=== PATIENT | male | born 1990 | race Two or more races ===

== ENCOUNTER 2019-01-18 11:08 | Inpatient (IN) | payer MEDICAID ==
[~2019-01-18] VITALS: Ht 175.3 cm; Wt 68.5 kg
[2019-01-18] MEDS ORDERED: NKM (11:18)
[2019-01-18 11:25] VITALS: BP 149/116
[2019-01-18 11:56] LABS: APPEARANCE,URINE CLEAR; BASOPHILS % (AUTO) 1.6 % (0.0-2.0); BILIRUBIN, URINE NEGATIVE (NEGATIVE); COLOR,URINE PALE YELLOW; EOSINOPHILS % (AUTO) 9.6 % (0.0-3.0); GLUCOSE, URINE (UA) NEGATIVE (NEGATIVE); HEMATOCRIT 32.6 % (42.0-52.0); HEMOGLOBIN 11.6 G/DL (14.2-18.0); KETONES,URINE NEGATIVE (NEGATIVE); LEUKOCYTE ESTERASE ,URINE 1+ (NEGATIVE); LYMPHOCYTES % (AUTO) 14.5 % (20.0-45.0); MEAN CORPUSCULAR VOLUME 80 FL (80-99); MONOCYTES % (AUTO) 11.2 % (1.0-10.0); NITRITE,URINE NEGATIVE (NEGATIVE); PH,URINE 7 (4.5-8.0); PLATELET COUNT 200 K/UL (150-450); PROTEIN,URINE 2+ (NEGATIVE); RED CELL DISTRIBUTION WIDTH 11.3 % (11.6-14.8); UROBILINOGEN,URINE NORMAL MG/DL (0.0-1.0); WHITE BLOOD COUNT 6.3 K/UL (4.8-10.8)
[2019-01-18 12:15] LABS: ALANINE AMINOTRANSFERASE 24 U/L (12-78); ALBUMIN 3.8 G/DL (3.4-5.0); ALKALINE PHOSPHATASE 77 U/L (46-116); ANION GAP 5 mmol/L (5-15); ASPARTATE AMINO TRANSFERASE 17 U/L (15-37); BILIRUBIN,TOTAL 1.2 MG/DL (0.2-1.0); BLOOD UREA NITROGEN 23 mg/dL (7-18); CARBON DIOXIDE 34 MMOL/L (21-32); CHLORIDE 102 MMOL/L (98-107); CREATININE 2.5 MG/DL (0.55-1.30); POTASSIUM 3.3 MMOL/L (3.5-5.1); SODIUM 141 MMOL/L (136-145)
--- NOTE | 2019-01-18 12:35 | Emergency Room Report ---
History of Present Illness General Chief Complaint: Abdominal Pain Source: Patient Present Illness HPI Disclaimer: Please note that this report is being documented using DRAGON technology. This can lead to erroneous entry secondary to incorrect interpretation by the dictating instrument. HPI: 28-year-old male presents for evaluation of vomiting. Symptoms have been present intermittently for approximately 1 month. 2 weeks ago the patient stopped using methamphetamines and alcohol though previously was using both heavily. He does not complain of abdominal pain but states that he has been having postprandial emesis after almost every wheel for the past 2 weeks. He is sometimes able to tolerate liquids but solids have been difficult particularly the past few days. He denies any history of pancreatitis, cholecystitis, appendicitis or intra-abdominal surgeries. Denies recent fevers , chills, chest pain, shortness of breath. Denies dysuria, hematuria diarrhea or constipation. There is been no blood in the emesis but he does describe it as bilious. 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 EOMI. poor dentition. Dry mucous membranes Cardiovascular: RRR. S1 and S2 normal. No murmur appreciated Resp: Normal work of breathing. No cough, wheezing or crackles appreciated Abdomen: Abdomen is soft, nondistended. Nontender, no masses Skin: Intact. No abrasions, laceration or rash over the exposed skin MSK: Normal tone and bulk. Moving all extremities. No obvious deformity. Neuro: Awake and alert. Mentating appropriately. Medical Decision Making Diagnostic Impression: Primary Impression: PURNIMA (acute kidney injury) Additional Impressions: Hypercalcemia Vomiting ER Course 28-year-old male presents for evaluation of several weeks postprandial emesis and dehydration. Differential includes was not limited to gastritis, viral syndrome, pancreatitis, cholecystitis, hepatitis, cyclic vomiting, withdrawal symptoms. This most likely represent a gastritis either from his prior heavy alcohol use or a viral syndrome. His abdomen is nontender and overall benign. Will check screening labs, provide antiemetics and IV fluids. Originally presented tachycardic but improved Laboratory Tests Test 01/18/19 11:30 White Blood Count 6.3 K/UL (4.8-10.8) Red Blood Count 4.10 M/UL (4.70-6.10) L Hemoglobin 11.6 G/DL (14.2-18.0) L Hematocrit 32.6 % (42.0-52.0) L Mean Corpuscular Volume 80 FL (80-99) Mean Corpuscular Hemoglobin 28.4 PG (27.0-31.0) Mean Corpuscular Hemoglobin Concent 35.7 G/DL (32.0-36.0) Red Cell Distribution Width 11.3 % (11.6-14.8) L Platelet Count 200 K/UL (150-450) Mean Platelet Volume 6.5 FL (6.5-10.1) Neutrophils (%) (Auto) 63.0 % (45.0-75.0) Lymphocytes (%) (Auto) 14.5 % (20.0-45.0) L Monocytes (%) (Auto) 11.2 % (1.0-10.0) H Eosinophils (%) (Auto) 9.6 % (0.0-3.0) H Basophils (%) (Auto) 1.6 % (0.0-2.0) Urine Color Pale yellow Urine Appearance Clear Urine pH 7 (4.5-8.0) Urine Specific [place] 1.010 (1.005-1.035) Urine Protein 2+ (NEGATIVE) H Urine Glucose (UA) Negative (NEGATIVE) Urine Ketones Negative (NEGATIVE) Urine Blood Negative (NEGATIVE) Urine Nitrite Negative (NEGATIVE) Urine Bilirubin Negative (NEGATIVE) Urine Urobilinogen Normal MG/DL (0.0-1.0) Urine Leukocyte Esterase 1+ (NEGATIVE) H Urine RBC 0-2 /HPF (0 - 0) H Urine WBC 0-2 /HPF (0 - 0) Urine Squamous Epithelial Cells Occasional /LPF Urine Bacteria Few /HPF (NONE) Sodium Level 141 MMOL/L (136-145) Potassium Level 3.3 MMOL/L (3.5-5.1) L Chloride Level 102 MMOL/L (98-107) Carbon Dioxide Level 34 MMOL/L (21-32) H Anion Gap 5 mmol/L (5-15) Blood Urea Nitrogen 23 mg/dL (7-18) H Creatinine 2.5 MG/DL (0.55-1.30) H Estimate Glomerular Filtration Rate 30.7 mL/min (>60) Glucose Level 135 MG/DL (74-106) H Calcium Level 13.3 MG/DL (8.5-10.1) *H Calcium (Send out) Pending Phosphorus Level Pending Magnesium Level Pending Total Bilirubin 1.2 MG/DL (0.2-1.0) H Direct Bilirubin 0.2 MG/DL (0.0-0.3) Aspartate Amino Transferase (AST) 17 U/L (15-37) Alanine Aminotransferase (ALT) 24 U/L (12-78) Alkaline Phosphatase 77 U/L (46-116) Total Protein 7.7 G/DL (6.4-8.2) Albumin 3.8 G/DL (3.4-5.0) Globulin 3.9 g/dL Albumin/Globulin Ratio 1.0 (1.0-2.7) Lipase 89 U/L (73-393) Parathyroid Hormone (Intact) Pending EKG Diagnostic Results EKG Time: 12:46 Rate: normal Rhythm: NSR ST Segments: no acute changes Other Impression Sinus rhythm, normal axis, normal intervals, no ST segment changes. Rhythm Strip Diag. Results Rhythm Strip Time: 12:46 EP Interpretation: yes Rate: 80s Rhythm: NSR, no PVC's, no ectopy Reevaluation Time: 12:56 Last Vital Signs Date Time Temp Pulse Resp B/P (MAP) Pulse Ox O2 Delivery O2 Flow Rate FiO2 01/18/19 11:25 98.7 101 18 149/116 99 Room Air Reevaluation Impression No significant white count noted however the patient did have a critically high calcium level at 13.6 and evidence of an acute kidney injury with a creatinine of 2.5 and an elevated BUN. The patient is receiving IV fluids and we will also add on magnesium, phosphorus, repeat calcium level and a PTH level. He will require admission for IV hydration and hypercalcemia Disposition: ADMITTED INPATIENT Condition: Serious Referrals: NOT CHOSEN IPA/,REFERRING (PCP) Jeramy Colvin MD Jan 18, 2019 12:35
[2019-01-18 12:38] LABS: CALCIUM 13.3 MG/DL (8.5-10.1)
[2019-01-18 12:39] LABS: BILIRUBIN,DIRECT 0.2 MG/DL (0.0-0.3)
[2019-01-18 12:47] VITALS: BP 148/107
[2019-01-18 14:00] VITALS: BP 147/109
[2019-01-18 16:00] VITALS: BP 151/104
--- NOTE | 2019-01-18 17:43 | Diagnostic Imaging Report ---
Indication: Acute renal failure Technique: Grayscale and duplex images of the kidneys, retroperitoneum, and bladder were obtained. Comparison: none Findings: Right kidney measures 12.2 cm in length. Left kidney measures 12.3 cm in length. Both kidneys demonstrate normal echogenicity. There is minimal hydronephrosis bilaterally.. No focal abnormality. Normal inferior vena cava. Bladder is slightly distended, calculated volume 323 mL. Incidentally noted-the spleen is enlarged, demonstrates innumerable hypoechoic nodules throughout the parenchyma. It measures 15.7 cm long axis dimension Impression: Minimal bilateral hydronephrosis, etiology/significance uncertain Enlarged spleen. Innumerable hypoechoic nodules seen throughout the spleen. These may represent foci of neoplasm or infection. Correlate with clinical history and findings, consider contrast CT for better characterization if clinically indicated.
--- NOTE | 2019-01-18 19:00 | Consultation ---
DATE OF CONSULTATION: 01/18/2019 CONSULTING PHYSICIAN: Ralph Chavez M.D. REFERRING PHYSICIAN: Angel Sandoval M.D. REASON FOR CONSULTATION: 1. Acute kidney injury. 2. Hypercalcemia. HISTORY OF PRESENT ILLNESS: The patient is a 28-year-old gentleman, who is admitted for further evaluation and care of nausea and vomiting, not feeling well with some abdominal pain. The patient states approximately 10 months ago, he was seen at a hospital in [facility] for a left lower payne infection and placed on antibiotics. He had been doing methamphetamines and alcohol and recently stopped over the past 2 months. He states that he not been feeling well over these past 2 months with some abdominal pain and nausea with occasional episodes of emesis. When it was noted upon laboratory evaluation that he had a creatinine of 2.5 and calcium of 13.1, the patient states he has not been told of any renal dysfunction in the past. He also says he has stopped all drugs and alcohol over the past 2 months. PAST MEDICAL HISTORY: 1. Substance abuse, currently in remission. 2. Left lower payne infection. ALLERGIES: No known drug allergies. SOCIAL HISTORY: Former meth and alcohol abuser. FAMILY HISTORY: Positive for hypertension. REVIEW OF SYSTEMS: NEUROLOGIC: The patient denies headache, change in vision, syncope, or presyncopal episodes. CARDIOVASCULAR: No current chest pain, palpitations, or angina. PULMONARY: No difficulty breathing, productive cough, or sputum. GASTROINTESTINAL/GENITOURINARY: The patient is having some nausea and vomiting. No diarrhea. ENDOCRINOLOGY: No night sweats, fevers, or chills. MUSCULOSKELETAL: The patient is feeling a little weak, tired, and fatigued. LABORATORY DATA: Labs dated January 18, 2019, sodium 141, potassium 3.3, calcium 13.1, creatinine 2.5, and BUN 23. Hemoglobin 11.6, white cell count 6.3, and platelet count 200,000. PHYSICAL EXAMINATION: VITAL SIGNS: Blood pressure 147/109, respiratory rate 18, pulse is 87, temperature 98, and 98% on room air. GENERAL: The patient is awake, alert, not in distress. HEENT: Extraocular muscles intact. No lymphadenopathy noted. CARDIOVASCULAR: S1, S2. No rubs or gallops. PULMONARY: Clear to auscultation bilaterally. No rales, rhonchi or wheezes. ABDOMINAL: Nondistended and nontender. EXTREMITY: No edema noted with left payne previous scarring noted. ASSESSMENT AND PLAN: 1. Acute kidney injury. At this time, most likely secondary to component of severe hypercalcemia. Chronicity is unclear. We will aggressively hydrate the patient and treat his calcium while checking renal ultrasound. 2. Hypercalcemia. Etiology unclear at this time. I have ordered SPEP, UPEP, PTH, and vitamin D levels and we will aggressively hydrate the patient. The patient will also be placed on calcitonin. We will follow calcium level throughout his hospitalization. 3. Dehydration. The patient is severely hypercalcemic. Continue aggressive IV hydration with normal saline 200 mL/hour. Ralph Chavez MD DR: PALMA JOB#: [id number] CC:
[2019-01-19 06:32] LABS: BASOPHILS % (AUTO) 1.9 % (0.0-2.0); HEMATOCRIT 29.4 % (42.0-52.0); HEMOGLOBIN 10.5 G/DL (14.2-18.0); LYMPHOCYTES % (AUTO) 15.4 % (20.0-45.0); MEAN CORPUSCULAR VOLUME 80 FL (80-99); MONOCYTES % (AUTO) 13.4 % (1.0-10.0); NEUTROPHILS % (AUTO) 58.3 % (45.0-75.0); PLATELET COUNT 168 K/UL (150-450); RED CELL DISTRIBUTION WIDTH 11.6 % (11.6-14.8)
[2019-01-19 07:05] LABS: ALANINE AMINOTRANSFERASE 21 U/L (12-78); ALBUMIN 3.2 G/DL (3.4-5.0); ALBUMIN/GLOBULIN RATIO 0.9 (1.0-2.7); ALKALINE PHOSPHATASE 63 U/L (46-116); ANION GAP 6 mmol/L (5-15); ASPARTATE AMINO TRANSFERASE 13 U/L (15-37); BILIRUBIN,TOTAL 1.3 MG/DL (0.2-1.0); BLOOD UREA NITROGEN 17 mg/dL (7-18); CALCIUM 10.8 MG/DL (8.5-10.1); CARBON DIOXIDE 27 MMOL/L (21-32); CHLORIDE 108 MMOL/L (98-107); CREATININE 2.3 MG/DL (0.55-1.30); POTASSIUM 3.4 MMOL/L (3.5-5.1); SODIUM 141 MMOL/L (136-145)
[2019-01-19 07:16] LABS: BILIRUBIN,DIRECT 0.2 MG/DL (0.0-0.3)
--- NOTE | 2019-01-19 07:42 | Nephrology Progress Note ---
Assessment/Plan Assessment/Plan: A/P 1) Hypercalcemia- improved with hydration and calcitonin - w/u pending - ? splenic malignancy 2) Innumerable hypoechoic nodules seen throughout the spleen. These may represent foci of neoplasm or infection. - will d/w PCP 3) PURNIMA- Cr down to 2.3 - min b/l hydro. - IVFs Subjective Date patient seen: Jan 19, 2019 Time patient seen: 07:40 ROS Limited/Unobtainable: No Allergies: Coded Allergies: No Known Allergies (Unverified , 01/18/19) Subjective Patient able to tolerate po now. Feeling better Objective Last 24 Hour Vital Signs Date Time Temp Pulse Resp B/P (MAP) Pulse Ox O2 Delivery O2 Flow Rate FiO2 01/19/19 05:22 97.0 01/18/19 21:00 Room Air 01/18/19 20:02 92 155/112 01/18/19 16:44 97.0 91 18 132/71 98 Room Air 01/18/19 16:00 97.0 91 18 151/104 (120) 98 01/18/19 15:13 Room Air 01/18/19 14:00 98.0 87 18 147/109 (122) 98 01/18/19 12:47 98.8 88 16 148/107 100 Room Air 01/18/19 11:25 98.7 101 18 149/116 99 Room Air 01/18/19 11:25 101 18 Room Air 01/18/19 11:18 98.8 101 18 153/104 (120) 99 Room Air Intake and Output 01/18/19 01/19/19 18:59 06:59 Intake Total 3800 ml 200 ml Balance 3800 ml 200 ml Intake IV Total 3800 ml 200 ml Laboratory Tests 01/18/19 11:30: White Blood Count 6.3, Red Blood Count 4.10L, Hemoglobin 11.6L, Hematocrit 32.6L , Mean Corpuscular Volume 80, Mean Corpuscular Hemoglobin 28.4, Mean Corpuscular Hemoglobin Concent 35.7, Red Cell Distribution Width 11.3L, Platelet Count 200, Mean Platelet Volume 6.5, Neutrophils (%) (Auto) 63.0, Lymphocytes (%) (Auto) 14.5L, Monocytes (%) (Auto) 11.2H, Eosinophils (%) (Auto ) 9.6H, Basophils (%) (Auto) 1.6, Urine Color Pale yellow, Urine Appearance Clear, Urine pH 7, Urine Specific [place] 1.010, Urine Protein 2+H, Urine Glucose (UA) Negative, Urine Ketones Negative, Urine Blood Negative, Urine Nitrite Negative, Urine Bilirubin Negative, Urine Urobilinogen Normal, Urine Leukocyte Esterase 1+H, Urine RBC 0-2H, Urine WBC 0-2, Urine Squamous Epithelial Cells Occasional, Urine Bacteria Few, Sodium Level 141, Potassium Level 3.3L, Chloride Level 102, Carbon Dioxide Level 34H, Anion Gap 5, Blood Urea Nitrogen 23H, Creatinine 2.5H, Estimat Glomerular Filtration Rate 30.7, Glucose Level 135H, Calcium Level 13.1*H, Calcium (Send out) [Pending], Phosphorus Level 3.3, Magnesium Level 1.7L, Total Bilirubin 1.2H, Direct Bilirubin 0.2, Aspartate Amino Transf (AST/SGOT) 17, Alanine Aminotransferase ( ALT/SGPT) 24, Alkaline Phosphatase 77, Total Protein 7.7, Albumin 3.8, Globulin 3.9, Albumin/Globulin Ratio 1.0, Lipase 89, Parathyroid Hormone (Intact) [ Pending] 01/18/19 15:30: Urine Total Protein [Pending], Urine Albumin (%) [Pending], Urine Alpha-1- Globulins (%) [Pending], Urine Fyfmz-4-Lrcbtahdd (%) [Pending], Urine Beta- Globulin (%) [Pending], Urine Gamma Globulin (%) [Pending], Ur Protein Electrophoresis M-Dio [Pending], Urine Protein Electrophoresis Intrp [Pending] 01/18/19 17:25: Albumin/Globulin Ratio [Pending], Total Protein (PEP) [Pending], Albumin (PEP) [ Pending], Globulin (PEP) [Pending], Cqlsn-4-[place] [Pending], Alpha-2- Globulins [Pending], Beta Globulins [Pending], Beta Gamma Globulin [Pending], PEP Abnormal Protein Bands [Pending], Protein Electrophoresis Interpret [Pending ], Vitamin D 25-Hydroxy [Pending], 25-Hydroxy Vitamin D2 [Pending], 25-Hydroxy Vitamin D3 [Pending] 01/19/19 05:20: White Blood Count 6.0, Red Blood Count 3.70L, Hemoglobin 10.5L, Hematocrit 29.4L , Mean Corpuscular Volume 80, Mean Corpuscular Hemoglobin 28.4, Mean Corpuscular Hemoglobin Concent 35.6, Red Cell Distribution Width 11.6, Platelet Count 168, Mean Platelet Volume 6.7, Neutrophils (%) (Auto) 58.3, Lymphocytes (% ) (Auto) 15.4L, Monocytes (%) (Auto) 13.4H, Eosinophils (%) (Auto) 11.0H, Basophils (%) (Auto) 1.9, Sodium Level 141, Potassium Level 3.4L, Chloride Level 108H, Carbon Dioxide Level 27, Anion Gap 6, Blood Urea Nitrogen 17, Creatinine 2.3H, Estimat Glomerular Filtration Rate 33.8, Glucose Level 82, Calcium Level 10.8H, Total Bilirubin 1.3H, Direct Bilirubin 0.2, Aspartate Amino Transf (AST/SGOT) 13L, Alanine Aminotransferase (ALT/SGPT) 21, Alkaline Phosphatase 63, Total Protein 6.6, Albumin 3.2L, Globulin 3.4, Albumin/Globulin Ratio 0.9L Height (Feet): 5 Height (Inches): 9.00 Weight (Pounds): 139 General Appearance: no apparent distress, alert EENT: normal ENT inspection Neck: normal alignment, supple Cardiovascular: normal rate, regular rhythm Respiratory/Chest: lungs clear, normal breath sounds Abdomen: non tender, soft Edema: no edema noted Arm (L), no edema noted Arm (R), no edema noted Leg (L), no edema noted Leg (R), no edema noted Pedal (L), no edema noted Pedal (R), no edema noted Generalized Ralph Chavez MD Jan 19, 2019 07:42
[2019-01-19 08:00] VITALS: BP 130/85
--- NOTE | 2019-01-19 10:45 | Diagnostic Imaging Report ---
Indication: Cough Technique: One view of the chest Comparison: none Findings: There is a small patchy area of reticular opacity in the right upper lobe. The remainder of the lungs and pleural spaces are clear. Heart size is normal. Impression: Patchy right upper lobe infiltrate, may reflect focal pneumonia. Correlate with clinical findings and recommend follow-up radiographs to resolution
--- NOTE | 2019-01-19 11:08 | Consultation ---
History of Present Illness General Date patient seen: Jan 19, 2019 Reason for Hospitalization: Abdominal Pain Present Illness HPI 28M with history of IVDA presented with abd pain, nausea, emesis. has been ongoing for a few weeks. in ED noted to have abnormal labs. admitted for care and management. surgery called to evaluate for abd pain, spleen nodules noted on US , and n/v. patient seen, chart reviewed, patient examined. states pain currently okay. no current n/v. Allergies: Coded Allergies: No Known Allergies (Unverified , 01/18/19) Medication History Scheduled No Known Medications* (NKM - No Known Medications*), 0 ., (Reported) Patient History History Provided By: Patient, Medical Record, PMD Healthcare decision maker Resuscitation status Full Code Advanced Directive on File No Past Medical/Surgical History Past Medical/Surgical History: (1) Hypercalcemia (2) Vomiting (3) PURNIMA (acute kidney injury) Review of Systems Review of Symptoms General ROS: no weight loss or fever Psychological ROS: no depression or mood changes, no memory loss Ophthalmic ROS: no visual changes or eye irritation ENT ROS: no nasal congestion, hearing loss, dizziness Allergy and Immunology ROS: no allergic symptoms or urticaria Hematological and Lymphatic ROS: no swollen glands, unusual bleeding or bruising Endocrine ROS: no polyuria, polydipsia, weight changes, temperature intolerance Respiratory ROS: no cough, shortness of breath, or wheezing Cardiovascular ROS: no chest pain or dyspnea on exertion Gastrointestinal ROS: denies abdominal pain, no bright red blood in stool. Musculoskeletal ROS: no myalgias or arthralgias Neurological ROS: no TIA or stroke symptoms Dermatological ROS: no new or changing skin lesions, rashes or pruritis Physical Exam Physical Exam General appearance: alert, cooperative, no distress, appears stated age Head: Normocephalic, without obvious abnormality, atraumatic Eyes: conjunctivae/corneas clear. PERRL, EOM's intact. Fundi benign Throat: Lips, mucosa, and tongue normal. Teeth and gums normal Neck: supple, symmetrical, trachea midline, no adenopathy, thyroid: not enlarged, symmetric, no tenderness/mass/nodules, no carotid bruit and no JVD Lungs: clear to auscultation bilaterally Heart: regular rate and rhythm, S1, S2 normal, no murmur, click, rub or gallop Abdomen: soft, non-tender. Bowel sounds normal. No masses, no organomegaly Extremities: extremities normal, atraumatic, no cyanosis or edema Pulses: 2+ and symmetric Skin: Skin color, texture, turgor normal. No rashes or lesions Neurologic: Grossly normal Last 24 Hour Vital Signs Date Time Temp Pulse Resp B/P (MAP) Pulse Ox O2 Delivery O2 Flow Rate FiO2 01/19/19 09:00 Room Air 01/19/19 08:27 80 130/85 01/19/19 08:00 98.3 80 18 130/85 (100) 99 01/19/19 05:22 97.0 01/18/19 21:00 Room Air 01/18/19 20:02 92 155/112 01/18/19 16:44 97.0 91 18 132/71 98 Room Air 01/18/19 16:00 97.0 91 18 151/104 (120) 98 01/18/19 15:13 Room Air 01/18/19 14:00 98.0 87 18 147/109 (122) 98 01/18/19 12:47 98.8 88 16 148/107 100 Room Air 01/18/19 11:25 98.7 101 18 149/116 99 Room Air 01/18/19 11:25 101 18 Room Air 01/18/19 11:18 98.8 101 18 153/104 (120) 99 Room Air Intake and Output 01/18/19 01/19/19 19:00 07:00 Intake Total 3800 ml 400 ml Balance 3800 ml 400 ml Intake IV Total 3800 ml 400 ml Laboratory Tests Test 01/18/19 11:30 01/18/19 15:30 01/18/19 17:25 01/19/19 05:20 White Blood Count 6.3 K/UL (4.8-10.8) 6.0 K/UL (4.8-10.8) Red Blood Count 4.10 M/UL (4.70-6.10) L 3.70 M/UL (4.70-6.10) L Hemoglobin 11.6 G/DL (14.2-18.0) L 10.5 G/DL (14.2-18.0) L Hematocrit 32.6 % (42.0-52.0) L 29.4 % (42.0-52.0) L Mean Corpuscular Volume 80 FL (80-99) 80 FL (80-99) Mean Corpuscular Hemoglobin 28.4 PG (27.0-31.0) 28.4 PG (27.0-31.0) Mean Corpuscular Hemoglobin Concent 35.7 G/DL (32.0-36.0) 35.6 G/DL (32.0-36.0) Red Cell Distribution Width 11.3 % (11.6-14.8) L 11.6 % (11.6-14.8) Platelet Count 200 K/UL (150-450) 168 K/UL (150-450) Mean Platelet Volume 6.5 FL (6.5-10.1) 6.7 FL (6.5-10.1) Neutrophils (%) (Auto) 63.0 % (45.0-75.0) 58.3 % (45.0-75.0) Lymphocytes (%) (Auto) 14.5 % (20.0-45.0) L 15.4 % (20.0-45.0) L Monocytes (%) (Auto) 11.2 % (1.0-10.0) H 13.4 % (1.0-10.0) H Eosinophils (%) (Auto) 9.6 % (0.0-3.0) H 11.0 % (0.0-3.0) H Basophils (%) (Auto) 1.6 % (0.0-2.0) 1.9 % (0.0-2.0) Urine Color Pale yellow Urine Appearance Clear Urine pH 7 (4.5-8.0) Urine Specific [place] 1.010 (1.005-1.035) Urine Protein 2+ (NEGATIVE) H Urine Glucose (UA) Negative (NEGATIVE) Urine Ketones Negative (NEGATIVE) Urine Blood Negative (NEGATIVE) Urine Nitrite Negative (NEGATIVE) Urine Bilirubin Negative (NEGATIVE) Urine Urobilinogen Normal MG/DL (0.0-1.0) Urine Leukocyte Esterase 1+ (NEGATIVE) H Urine RBC 0-2 /HPF (0 - 0) H Urine WBC 0-2 /HPF (0 - 0) Urine Squamous Epithelial Cells Occasional /LPF Urine Bacteria Few /HPF (NONE) Sodium Level 141 MMOL/L (136-145) 141 MMOL/L (136-145) Potassium Level 3.3 MMOL/L (3.5-5.1) L 3.4 MMOL/L (3.5-5.1) L Chloride Level 102 MMOL/L (98-107) 108 MMOL/L (98-107) H Carbon Dioxide Level 34 MMOL/L (21-32) H 27 MMOL/L (21-32) Anion Gap 5 mmol/L (5-15) 6 mmol/L (5-15) Blood Urea Nitrogen 23 mg/dL (7-18) H 17 mg/dL (7-18) Creatinine 2.5 MG/DL (0.55-1.30) H 2.3 MG/DL (0.55-1.30) H Estimat Glomerular Filtration Rate 30.7 mL/min (>60) 33.8 mL/min (>60) Glucose Level 135 MG/DL (74-106) H 82 MG/DL (74-106) Calcium Level 13.1 MG/DL (8.5-10.1) *H 10.8 MG/DL (8.5-10.1) H Calcium (Send out) Pending Phosphorus Level 3.3 MG/DL (2.5-4.9) Magnesium Level 1.7 MG/DL (1.8-2.4) L Total Bilirubin 1.2 MG/DL (0.2-1.0) H 1.3 MG/DL (0.2-1.0) H Direct Bilirubin 0.2 MG/DL (0.0-0.3) 0.2 MG/DL (0.0-0.3) Aspartate Amino Transf (AST/SGOT) 17 U/L (15-37) 13 U/L (15-37) L Alanine Aminotransferase (ALT/SGPT) 24 U/L (12-78) 21 U/L (12-78) Alkaline Phosphatase 77 U/L (46-116) 63 U/L (46-116) Total Protein 7.7 G/DL (6.4-8.2) 6.6 G/DL (6.4-8.2) Albumin 3.8 G/DL (3.4-5.0) 3.2 G/DL (3.4-5.0) L Globulin 3.9 g/dL 3.4 g/dL Albumin/Globulin Ratio 1.0 (1.0-2.7) Pending 0.9 (1.0-2.7) L Lipase 89 U/L (73-393) Parathyroid Hormone (Intact) Pending Urine Total Protein Pending Urine Albumin (%) Pending Urine Prrkr-7-Wjnkmbegl (%) Pending Urine Hwgih-1-Sehzqiyyj (%) Pending Urine Beta-Globulin (%) Pending Urine Gamma Globulin (%) Pending Ur Protein Electrophoresis M-Dio Pending Urine Protein Electrophoresis Intrp Pending Total Protein (PEP) Pending Albumin (PEP) Pending Globulin (PEP) Pending Prnyy-4-[place]yn[place]b Pending [place]-2-Dygpfjnvt Pending Beta Globulins Pending Beta Gamma Globulin Pending PEP Abnormal Protein Bands Pending Protein Electrophoresis Interpret Pending Vitamin D 25-Hydroxy Pending 25-Hydroxy Vitamin D2 Pending 25-Hydroxy Vitamin D3 Pending Height (Feet): 5 Height (Inches): 9.00 Weight (Pounds): 139 Medications Current Medications Medications (Trade) Dose Ordered Sig/Earnest Route PRN Reason Start Time Stop Time Status Last Admin Dose Admin Acetaminophen (Tylenol) 650 mg Q6H PRN ORAL Mild Pain/Temp > 100.5 01/18/19 14:45 02/17/19 14:44 01/19/19 04:50 Amlodipine Besylate (Norvasc) 5 mg Q12HR ORAL 01/18/19 19:45 02/17/19 19:44 01/19/19 08:27 Calcitonin [place] (Miacalcin) 1 sprays BID NASAL 01/18/19 18:00 02/17/19 17:59 01/19/19 08:27 Ondansetron HCl (Zofran) 4 mg Q6H PRN IVP Nausea & Vomiting 01/18/19 14:45 02/17/19 14:44 Sodium Chloride 1,000 ml @ 200 mls/hr Q5H IV 01/18/19 14:45 02/17/19 14:44 01/19/19 09:00 Assessment/Plan Problem List: (1) Abdominal pain Assessment & Plan: abd pain, n/v improving currently no complaints okay for diet after imaging iv fluids trend labs ICD Codes: R10.9 - Unspecified abdominal pain SNOMED: 67101089 (2) Lesion of spleen Assessment & Plan: unknown correlation with hyperCa++ / hx of incarceration. will await CT ICD Codes: D73.9 - Disease of spleen, unspecified SNOMED: 330107812700435 (3) Vomiting ICD Codes: R11.10 - Vomiting, unspecified SNOMED: 303885717, [id number] Jan Woods Jan 19, 2019 11:08
[2019-01-19 12:27] VITALS: BP 147/111
--- NOTE | 2019-01-19 16:30 | History and Physical Report ---
DATE OF ADMISSION: 01/18/2019 HISTORY OF PRESENT ILLNESS: This is a 28-year-old male, who came to the hospital with nausea, vomiting, and abdominal pain. The patient has been having this issue for many months and he reports he was previously admitted to outside Hospital with a payne infection. He also reports he has been consuming methamphetamines and alcohol, but has stopped two months ago. The patient states that he has kidney problems as well. In the ER, he was worked up, found to have renal failure with creatinine 2.5 with significant hypercalcemia. PAST MEDICAL HISTORY: Notable for substance abuse, previous payne infection ALLERGIES: None. HOME MEDICATIONS: None. SOCIAL HISTORY: He has been a former methamphetamine and alcohol abuser. REVIEW OF SYSTEMS: He denies any headaches, hematemesis, melena, hematochezia, or weight loss. PHYSICAL EXAMINATION: GENERAL: Reveals a 28-year-old male. HEENT: Unremarkable. CHEST: Clear breath sounds bilaterally with normal heart sounds. ABDOMEN: Soft. EXTREMITIES: There is no edema. LABORATORY DATA: Lab testing shows hemoglobin 10.5. Calcium 13, now 10.8. Potassium 3.4. Creatinine 2.3. Total bilirubin 1.3. IMAGING STUDIES: He underwent the kidneys, which has shown that hypoechoic lesions are seen throughout the spleen. IMPRESSION: 1. Multiple splenic lesions. 2. Hypercalcemia. 3. Renal failure. 4. Nausea, vomiting. DISCUSSION: Admit to the hospital. Seen by Nephrology. We will consult Surgery regarding imaging studies and need for biopsy of the spleen. Avoid IV contrast given renal function. We will follow carefully. Consider MRI of abdomen. Angel Sandoval M.D. DR: JAKE JOB#: [id number] CC:
[2019-01-19 16:57] VITALS: BP 141/105
[2019-01-19 20:00] VITALS: BP 153/119
[2019-01-20] VITALS: BP 133/95
[2019-01-20 06:33] LABS: EOSINOPHILS % (AUTO) 10.7 % (0.0-3.0); HEMATOCRIT 33.2 % (42.0-52.0); HEMOGLOBIN 11.7 G/DL (14.2-18.0); LYMPHOCYTES % (AUTO) 16.2 % (20.0-45.0); MEAN CORPUSCULAR VOLUME 80 FL (80-99); MONOCYTES % (AUTO) 11.8 % (1.0-10.0); NEUTROPHILS % (AUTO) 59.4 % (45.0-75.0); PLATELET COUNT 197 K/UL (150-450); RED BLOOD COUNT 4.14 M/UL (4.70-6.10); RED CELL DISTRIBUTION WIDTH 11.8 % (11.6-14.8); WHITE BLOOD COUNT 6.3 K/UL (4.8-10.8)
[2019-01-20 06:52] LABS: ALANINE AMINOTRANSFERASE 25 U/L (12-78); ALBUMIN 3.7 G/DL (3.4-5.0); ALBUMIN/GLOBULIN RATIO 0.9 (1.0-2.7); ALKALINE PHOSPHATASE 71 U/L (46-116); AMYLASE 70 U/L (25-115); ANION GAP 8 mmol/L (5-15); ASPARTATE AMINO TRANSFERASE 13 U/L (15-37); BILIRUBIN,TOTAL 1.3 MG/DL (0.2-1.0); BLOOD UREA NITROGEN 19 mg/dL (7-18); CARBON DIOXIDE 27 MMOL/L (21-32); CHLORIDE 108 MMOL/L (98-107); POTASSIUM 3.3 MMOL/L (3.5-5.1); SODIUM 143 MMOL/L (136-145)
[2019-01-20 06:55] LABS: BILIRUBIN,DIRECT 0.2 MG/DL (0.0-0.3)
[2019-01-20 08:21] VITALS: BP 144/108
--- NOTE | 2019-01-20 08:32 | Nephrology Progress Note ---
Assessment/Plan Assessment/Plan: A/P 1) Hypercalcemia- improved with hydration and calcitonin - PTH appropriately suppressed/ SPEP negative. Vit D levels pending - ? splenic malignancy/Infection 2) Innumerable hypoechoic nodules seen throughout the spleen. These may represent foci of neoplasm or infection. - will d/w PCP. CXR results noted 3) PURNIMA- Cr down to 2 - min b/l hydro. - IVFs Subjective Date patient seen: Jan 20, 2019 Time patient seen: 08:27 ROS Limited/Unobtainable: No Allergies: Coded Allergies: No Known Allergies (Unverified , 01/18/19) Subjective Patient able to tolerate po now. Feeling better. No SOB Objective Last 24 Hour Vital Signs Date Time Temp Pulse Resp B/P (MAP) Pulse Ox O2 Delivery O2 Flow Rate FiO2 01/20/19 08:21 98.0 78 18 144/108 (120) 100 01/20/19 00:00 98.1 85 20 133/95 (108) 94 01/19/19 21:08 88 153/119 01/19/19 21:00 Room Air 01/19/19 20:00 98.3 88 20 153/119 (130) 100 01/19/19 16:57 97.9 84 18 141/105 (117) 100 01/19/19 12:27 98.4 87 18 147/111 (123) 99 01/19/19 09:00 Room Air Intake and Output 01/19/19 01/20/19 18:59 06:59 Intake Total 1400 ml 2200 ml Balance 1400 ml 2200 ml Intake IV Total 1400 ml 2200 ml Laboratory Tests 01/20/19 05:40: White Blood Count 6.3, Red Blood Count 4.14L, Hemoglobin 11.7L, Hematocrit 33.2L , Mean Corpuscular Volume 80, Mean Corpuscular Hemoglobin 28.2, Mean Corpuscular Hemoglobin Concent 35.2, Red Cell Distribution Width 11.8, Platelet Count 197, Mean Platelet Volume 6.9, Neutrophils (%) (Auto) 59.4, Lymphocytes (% ) (Auto) 16.2L, Monocytes (%) (Auto) 11.8H, Eosinophils (%) (Auto) 10.7H, Basophils (%) (Auto) 2.0, Erythrocyte Sedimentation Rate [Pending], Prothrombin Time 10.6, Prothromb Time International Ratio 1.0, Activated Partial Thromboplast Time 26, Sodium Level 143, Potassium Level 3.3L, Chloride Level 108H, Carbon Dioxide Level 27, Anion Gap 8, Blood Urea Nitrogen 19H, Creatinine 2.0H, Estimat Glomerular Filtration Rate 39.7, Glucose Level 85, Calcium Level 11.0H, Total Bilirubin 1.3H, Direct Bilirubin 0.2, Aspartate Amino Transf (AST/ SGOT) 13L, Alanine Aminotransferase (ALT/SGPT) 25, Alkaline Phosphatase 71, C- Reactive Protein, Quantitative < 0.4, Total Protein 7.7, Albumin 3.7, Globulin 4.0, Albumin/Globulin Ratio 0.9L, Amylase Level 70, Lipase 123 Height (Feet): 5 Height (Inches): 9.00 Weight (Pounds): 151 General Appearance: no apparent distress, alert EENT: normal ENT inspection Neck: normal alignment, supple Cardiovascular: normal rate, regular rhythm Respiratory/Chest: lungs clear, normal breath sounds Abdomen: non tender, soft Edema: no edema noted Arm (L), no edema noted Arm (R), no edema noted Leg (L), no edema noted Leg (R), no edema noted Pedal (L), no edema noted Pedal (R), no edema noted Generalized Ralph Chavez MD Jan 20, 2019 08:32
--- NOTE | 2019-01-20 08:54 | Pulmonology Progress Note ---
Assessment/Plan Assessment/Plan IMPRESSION: 1. Multiple splenic lesions. 2. Hypercalcemia. 3. Renal failure. 4. Nausea, vomiting. 5. RUL pneumonia.. possibly aspiration DISCUSSION: Await CT abdomen and chest. Seen by Nephrology. Avoid IV contrast given renal function. I will follow carefully. Subjective Interval Events: None new Constitutional: Reports: no symptoms HEENT: Repors: no symptoms Respiratory: Reports: no symptoms Cardiovascular: Reports: no symptoms Gastrointestinal/Abdominal: Reports: no symptoms Genitourinary: Reports: no symptoms Allergies: Coded Allergies: No Known Allergies (Unverified , 01/18/19) Objective Last 24 Hour Vital Signs Date Time Temp Pulse Resp B/P (MAP) Pulse Ox O2 Delivery O2 Flow Rate FiO2 01/20/19 08:21 98.0 78 18 144/108 (120) 100 01/20/19 00:00 98.1 85 20 133/95 (108) 94 01/19/19 21:08 88 153/119 01/19/19 21:00 Room Air 01/19/19 20:00 98.3 88 20 153/119 (130) 100 01/19/19 16:57 97.9 84 18 141/105 (117) 100 01/19/19 12:27 98.4 87 18 147/111 (123) 99 01/19/19 09:00 Room Air Intake and Output 01/19/19 01/20/19 18:59 06:59 Intake Total 1400 ml 2200 ml Balance 1400 ml 2200 ml Intake IV Total 1400 ml 2200 ml General Appearance: no acute distress HEENT: normocephalic Respiratory/Chest: chest wall non-tender, lungs clear Cardiovascular: normal peripheral pulses, normal rate Abdomen: normal bowel sounds Laboratory Tests 01/20/19 05:40: White Blood Count 6.3, Red Blood Count 4.14L, Hemoglobin 11.7L, Hematocrit 33.2L , Mean Corpuscular Volume 80, Mean Corpuscular Hemoglobin 28.2, Mean Corpuscular Hemoglobin Concent 35.2, Red Cell Distribution Width 11.8, Platelet Count 197, Mean Platelet Volume 6.9, Neutrophils (%) (Auto) 59.4, Lymphocytes (% ) (Auto) 16.2L, Monocytes (%) (Auto) 11.8H, Eosinophils (%) (Auto) 10.7H, Basophils (%) (Auto) 2.0, Erythrocyte Sedimentation Rate 44H, Prothrombin Time 10.6, Prothromb Time International Ratio 1.0, Activated Partial Thromboplast Time 26, Sodium Level 143, Potassium Level 3.3L, Chloride Level 108H, Carbon Dioxide Level 27, Anion Gap 8, Blood Urea Nitrogen 19H, Creatinine 2.0H, Estimat Glomerular Filtration Rate 39.7, Glucose Level 85, Calcium Level 11.0H, Total Bilirubin 1.3H, Direct Bilirubin 0.2, Aspartate Amino Transf (AST/SGOT) 13L, Alanine Aminotransferase (ALT/SGPT) 25, Alkaline Phosphatase 71, C- Reactive Protein, Quantitative < 0.4, Total Protein 7.7, Albumin 3.7, Globulin 4.0, Albumin/Globulin Ratio 0.9L, Amylase Level 70, Lipase 123 Current Medications Medications (Trade) Dose Ordered Sig/Earnest Route PRN Reason Start Time Stop Time Status Last Admin Dose Admin Acetaminophen (Tylenol) 650 mg Q6H PRN ORAL Mild Pain/Temp > 100.5 01/18/19 14:45 02/17/19 14:44 01/19/19 21:12 Amlodipine Besylate (Norvasc) 5 mg Q12HR ORAL 01/18/19 19:45 02/17/19 19:44 01/19/19 21:08 Calcitonin [place] (Miacalcin) 1 sprays BID NASAL 01/18/19 18:00 02/17/19 17:59 01/19/19 17:10 Ondansetron HCl (Zofran) 4 mg Q6H PRN IVP Nausea & Vomiting 01/18/19 14:45 02/17/19 14:44 Potassium Chloride (K-Dur) 40 meq ONCE ORAL 01/20/19 08:30 01/20/19 09:30 Sodium Chloride 1,000 ml @ 125 mls/hr Q8H IV 01/20/19 14:45 02/17/19 14:44 Angel Sandoval MD Jan 20, 2019 08:54
[2019-01-20 12:00] VITALS: BP 137/95
--- NOTE | 2019-01-20 14:17 | Diagnostic Imaging Report ---
Indication: Chest pain. Abdominal pain Technique: Continuous helical transaxial imaging of the chest, abdomen and pelvis was obtained from the thoracic inlet to the pubic symphysis. No IV contrast was administered. Coronal 2-D reformats were also obtained. Study obtained in a Siemens sensation [address] Total Dose length Product (DLP): 2124.[address] Dose Index Volume (CTDIvol): 29.5 mGy Comparison: None Findings: Reticular nodular densities demonstrated within the right upper lobe. The densities are primarily interstitial and small airways type opacities with some nodular component. Findings may be due to pneumonia especially atypical infection. There is no consolidation or airspace opacities demonstrated. Correlate clinically. No pleural effusion seen. There are small nodes in the mediastinum nonspecific. There are also nodes within the axilla bilaterally. These could be inflammatory or neoplastic. There is suggestion of adenopathy in the subcarinal aspect of the mediastinum and as ago esophageal recess which appears convex. There is suggestion of a 6 no in the anterior dome of the liver. There may also be hilar nodes. This is not evaluated well on the current study which is obtained without intravenous contrast. 5 there are nonobstructive stones within both kidneys. There is no hydronephrosis. The spleen is enlarged measuring about 18 cm. There is relative absence of bowel gas within the abdomen. There is some moderate thickening of the wall the urinary bladder. Small nodes are seen in the mid retroperitoneum and mesentery nonspecific. Gallbladder is unremarkable. IMPRESSION: Marked splenomegaly. Nonobstructive stones within both kidneys. Reticular nodular infiltrate in the right lung. Inflammatory/infectious process suspected. Lymphadenopathy within the mediastinum and bilateral axilla. Neoplastic versus inflammatory. Probable hilar adenopathy. Suboptimal evaluation due to the nonadministration of intravenous contrast. The CT scanner at [facility] is accredited by the [employer] and the scans are performed using dose optimization techniques as appropriate to a performed exam including Automatic Exposure control.
[2019-01-20 16:00] VITALS: BP 151/68
[2019-01-20 20:00] VITALS: BP 144/93
--- NOTE | 2019-01-20 20:09 | Surgery Progress Note ---
Surgery Progress Note Subjective Additional Comments no acute events discussed CT findings states he has known about lymphadenopathy and was told when incarcerated did not follow up as he was told to do so Objective Last 24 Hour Vital Signs Date Time Temp Pulse Resp B/P (MAP) Pulse Ox O2 Delivery O2 Flow Rate FiO2 01/20/19 17:40 98.4 01/20/19 16:00 98.4 89 18 151/68 (95) 100 01/20/19 12:00 98.3 78 16 137/95 (109) 99 01/20/19 09:04 78 144/108 01/20/19 09:00 Room Air 01/20/19 08:21 98.0 78 18 144/108 (120) 100 01/20/19 00:00 98.1 85 20 133/95 (108) 94 01/19/19 21:08 88 153/119 01/19/19 21:00 Room Air I&O Intake and Output 01/19/19 01/20/19 19:00 07:00 Intake Total 1400 ml 2000 ml Balance 1400 ml 2000 ml Intake IV Total 1400 ml 2000 ml Cardiovascular: RSR Respiratory: clear Abdomen: soft, flat, non-tender, present bowel sounds Extremities: no edema, no tenderness, no cyanosis Laboratory Tests Test 01/20/19 05:40 White Blood Count 6.3 K/UL (4.8-10.8) Red Blood Count 4.14 M/UL (4.70-6.10) L Hemoglobin 11.7 G/DL (14.2-18.0) L Hematocrit 33.2 % (42.0-52.0) L Mean Corpuscular Volume 80 FL (80-99) Mean Corpuscular Hemoglobin 28.2 PG (27.0-31.0) Mean Corpuscular Hemoglobin Concent 35.2 G/DL (32.0-36.0) Red Cell Distribution Width 11.8 % (11.6-14.8) Platelet Count 197 K/UL (150-450) Mean Platelet Volume 6.9 FL (6.5-10.1) Neutrophils (%) (Auto) 59.4 % (45.0-75.0) Lymphocytes (%) (Auto) 16.2 % (20.0-45.0) L Monocytes (%) (Auto) 11.8 % (1.0-10.0) H Eosinophils (%) (Auto) 10.7 % (0.0-3.0) H Basophils (%) (Auto) 2.0 % (0.0-2.0) Erythrocyte Sedimentation Rate 44 MM/HR (0-15) H Prothrombin Time 10.6 SEC (9.30-11.50) Prothromb Time International Ratio 1.0 (0.9-1.1) Activated Partial Thromboplast Time 26 SEC (23-33) Sodium Level 143 MMOL/L (136-145) Potassium Level 3.3 MMOL/L (3.5-5.1) L Chloride Level 108 MMOL/L (98-107) H Carbon Dioxide Level 27 MMOL/L (21-32) Anion Gap 8 mmol/L (5-15) Blood Urea Nitrogen 19 mg/dL (7-18) H Creatinine 2.0 MG/DL (0.55-1.30) H Estimat Glomerular Filtration Rate 39.7 mL/min (>60) Glucose Level 85 MG/DL (74-106) Calcium Level 11.0 MG/DL (8.5-10.1) H Total Bilirubin 1.3 MG/DL (0.2-1.0) H Direct Bilirubin 0.2 MG/DL (0.0-0.3) Aspartate Amino Transf (AST/SGOT) 13 U/L (15-37) L Alanine Aminotransferase (ALT/SGPT) 25 U/L (12-78) Alkaline Phosphatase 71 U/L (46-116) C-Reactive Protein, Quantitative < 0.4 mg/dL (0.00-0.90) Total Protein 7.7 G/DL (6.4-8.2) Albumin 3.7 G/DL (3.4-5.0) Globulin 4.0 g/dL Albumin/Globulin Ratio 0.9 (1.0-2.7) L Amylase Level 70 U/L (25-115) Lipase 123 U/L (73-393) Plan Problems: (1) Abdominal pain Assessment & Plan: abd pain, n/v improving currently no complaints okay for diet after imaging iv fluids trend labs (2) Lesion of spleen Assessment & Plan: unknown correlation with hyperCa++ / hx of incarceration. Findings: Reticular nodular densities demonstrated within the right upper lobe. The densities are primarily interstitial and small airways type opacities with some nodular component. Findings may be due to pneumonia especially atypical infection. There is no consolidation or airspace opacities demonstrated. Correlate clinically. No pleural effusion seen. There are small nodes in the mediastinum nonspecific. There are also nodes within the axilla bilaterally. These could be inflammatory or neoplastic. There is suggestion of adenopathy in the subcarinal aspect of the mediastinum and as ago esophageal recess which appears convex. There is suggestion of a 6 no in the anterior dome of the liver. There may also be hilar nodes. This is not evaluated well on the current study which is obtained without intravenous contrast. 5 there are nonobstructive stones within both kidneys. There is no hydronephrosis. The spleen is enlarged measuring about 18 cm. There is relative absence of bowel gas within the abdomen. There is some moderate thickening of the wall the urinary bladder. Small nodes are seen in the mid retroperitoneum and mesentery nonspecific. Gallbladder is unremarkable. IMPRESSION: Marked splenomegaly. Nonobstructive stones within both kidneys. Reticular nodular infiltrate in the right lung. Inflammatory/infectious process suspected. Lymphadenopathy within the mediastinum and bilateral axilla. Neoplastic versus inflammatory. Probable hilar adenopathy. Suboptimal evaluation due to the nonadministration of intravenous contrast. (3) Vomiting Additional Comments okay for diet d/c outpt follow up for biopsy of LN Jan Woods Jan 20, 2019 20:09
[2019-01-21] VITALS: BP 151/86
[2019-01-21 04:00] VITALS: BP 123/86
[2019-01-21 06:09] LABS: BASOPHILS % (AUTO) 1.9 % (0.0-2.0); EOSINOPHILS % (AUTO) 13.4 % (0.0-3.0); HEMATOCRIT 31.7 % (42.0-52.0); HEMOGLOBIN 11.2 G/DL (14.2-18.0); MEAN CORPUSCULAR VOLUME 80 FL (80-99); MONOCYTES % (AUTO) 10.8 % (1.0-10.0); NEUTROPHILS % (AUTO) 57.9 % (45.0-75.0); PLATELET COUNT 193 K/UL (150-450); RED BLOOD COUNT 3.95 M/UL (4.70-6.10); RED CELL DISTRIBUTION WIDTH 12.1 % (11.6-14.8)
[2019-01-21 06:24] LABS: ALANINE AMINOTRANSFERASE 16 U/L (12-78); ALBUMIN 3.7 G/DL (3.4-5.0); ALKALINE PHOSPHATASE 66 U/L (46-116); ANION GAP 10 mmol/L (5-15); ASPARTATE AMINO TRANSFERASE 10 U/L (15-37); BLOOD UREA NITROGEN 19 mg/dL (7-18); CALCIUM 10.6 MG/DL (8.5-10.1); CARBON DIOXIDE 25 MMOL/L (21-32); CHLORIDE 103 MMOL/L (98-107); CREATININE 1.8 MG/DL (0.55-1.30); POTASSIUM 3.3 MMOL/L (3.5-5.1); SODIUM 138 MMOL/L (136-145)
[2019-01-21 08:00] VITALS: BP 141/99
[2019-01-21 08:29] VITALS: BP 141/99
--- NOTE | 2019-01-21 09:25 | Nephrology Progress Note ---
Assessment/Plan Assessment/Plan: A/P 1) Hypercalcemia- improved with hydration and calcitonin - PTH appropriately suppressed/ SPEP negative. Vit D levels pending - Due to lymphoma 2) Innumerable hypoechoic nodules seen throughout the spleen - likely lymphoma 3) PURNIMA- Cr down to 1.8 Will need out patient follow up Subjective Date patient seen: Jan 21, 2019 Time patient seen: 09:21 ROS Limited/Unobtainable: No Allergies: Coded Allergies: No Known Allergies (Unverified , 01/18/19) Subjective Patient feeling well Objective Last 24 Hour Vital Signs Date Time Temp Pulse Resp B/P (MAP) Pulse Ox O2 Delivery O2 Flow Rate FiO2 01/21/19 08:29 77 141/99 01/21/19 08:00 98.3 77 18 141/99 (113) 98 01/21/19 04:00 98.0 79 18 123/86 (98) 97 01/21/19 00:00 97.2 72 18 151/86 (107) 98 01/20/19 20:54 87 144/93 01/20/19 20:37 Room Air 01/20/19 20:00 97.8 87 18 144/93 (110) 99 01/20/19 17:40 98.4 01/20/19 16:00 98.4 89 18 151/68 (95) 100 01/20/19 12:00 98.3 78 16 137/95 (109) 99 Intake and Output 01/20/19 01/21/19 18:59 06:59 Intake Total 1525 ml 1375 ml Balance 1525 ml 1375 ml IV Total 1525 ml 1375 ml Laboratory Tests 01/21/19 05:22: White Blood Count 6.0, Red Blood Count 3.95L, Hemoglobin 11.2L, Hematocrit 31.7L , Mean Corpuscular Volume 80, Mean Corpuscular Hemoglobin 28.3, Mean Corpuscular Hemoglobin Concent 35.4, Red Cell Distribution Width 12.1, Platelet Count 193, Mean Platelet Volume 7.3, Neutrophils (%) (Auto) 57.9, Lymphocytes (% ) (Auto) 16.0L, Monocytes (%) (Auto) 10.8H, Eosinophils (%) (Auto) 13.4H, Basophils (%) (Auto) 1.9, Sodium Level 138, Potassium Level 3.3L, Chloride Level 103, Carbon Dioxide Level 25, Anion Gap 10, Blood Urea Nitrogen 19H, Creatinine 1.8H, Estimat Glomerular Filtration Rate 44.8, Glucose Level 93, Calcium Level 10.6H, Total Bilirubin 1.0, Aspartate Amino Transf (AST/SGOT) 10L , Alanine Aminotransferase (ALT/SGPT) 16, Alkaline Phosphatase 66, Total Protein 7.4, Albumin 3.7, Globulin 3.7, Albumin/Globulin Ratio 1.0 Height (Feet): 5 Height (Inches): 9.00 Weight (Pounds): 151 General Appearance: no apparent distress EENT: normal ENT inspection Neck: normal alignment Cardiovascular: normal rate, regular rhythm Respiratory/Chest: lungs clear, normal breath sounds Abdomen: non tender, soft Edema: no edema noted Arm (L), no edema noted Arm (R), no edema noted Leg (L), no edema noted Leg (R), no edema noted Pedal (L), no edema noted Pedal (R), no edema noted Generalized Ralph Chavez MD Jan 21, 2019 09:25
--- NOTE | 2019-01-21 09:32 | Pulmonology Progress Note ---
Assessment/Plan Assessment/Plan IMPRESSION: 1. Multiple splenic lesions. 2. Hypercalcemia. 3. Renal failure. 4. Nausea, vomiting. 5. RUL pneumonia.. possibly aspiration DISCUSSION: Doing well Discussed imaging reports He is aware of underlying lymphadenopathy He will follow up with his PCP Subjective Interval Events: None new; imaging noted Constitutional: Reports: no symptoms HEENT: Repors: no symptoms Respiratory: Reports: no symptoms Cardiovascular: Reports: no symptoms Gastrointestinal/Abdominal: Reports: no symptoms Allergies: Coded Allergies: No Known Allergies (Unverified , 01/18/19) Objective Last 24 Hour Vital Signs Date Time Temp Pulse Resp B/P (MAP) Pulse Ox O2 Delivery O2 Flow Rate FiO2 01/21/19 08:29 77 141/99 01/21/19 08:00 98.3 77 18 141/99 (113) 98 01/21/19 04:00 98.0 79 18 123/86 (98) 97 01/21/19 00:00 97.2 72 18 151/86 (107) 98 01/20/19 20:54 87 144/93 01/20/19 20:37 Room Air 01/20/19 20:00 97.8 87 18 144/93 (110) 99 01/20/19 17:40 98.4 01/20/19 16:00 98.4 89 18 151/68 (95) 100 01/20/19 12:00 98.3 78 16 137/95 (109) 99 Intake and Output 01/20/19 01/21/19 18:59 06:59 Intake Total 1525 ml 1375 ml Balance 1525 ml 1375 ml IV Total 1525 ml 1375 ml General Appearance: no acute distress HEENT: normocephalic Respiratory/Chest: chest wall non-tender, lungs clear Cardiovascular: normal peripheral pulses Abdomen: normal bowel sounds Laboratory Tests 01/21/19 05:22: White Blood Count 6.0, Red Blood Count 3.95L, Hemoglobin 11.2L, Hematocrit 31.7L , Mean Corpuscular Volume 80, Mean Corpuscular Hemoglobin 28.3, Mean Corpuscular Hemoglobin Concent 35.4, Red Cell Distribution Width 12.1, Platelet Count 193, Mean Platelet Volume 7.3, Neutrophils (%) (Auto) 57.9, Lymphocytes (% ) (Auto) 16.0L, Monocytes (%) (Auto) 10.8H, Eosinophils (%) (Auto) 13.4H, Basophils (%) (Auto) 1.9, Sodium Level 138, Potassium Level 3.3L, Chloride Level 103, Carbon Dioxide Level 25, Anion Gap 10, Blood Urea Nitrogen 19H, Creatinine 1.8H, Estimat Glomerular Filtration Rate 44.8, Glucose Level 93, Calcium Level 10.6H, Total Bilirubin 1.0, Aspartate Amino Transf (AST/SGOT) 10L , Alanine Aminotransferase (ALT/SGPT) 16, Alkaline Phosphatase 66, Total Protein 7.4, Albumin 3.7, Globulin 3.7, Albumin/Globulin Ratio 1.0 Current Medications Medications (Trade) Dose Ordered Sig/Earnest Route PRN Reason Start Time Stop Time Status Last Admin Dose Admin Acetaminophen (Tylenol) 650 mg Q6H PRN ORAL Mild Pain/Temp > 100.5 01/18/19 14:45 02/17/19 14:44 01/21/19 05:33 Amlodipine Besylate (Norvasc) 5 mg Q12HR ORAL 01/18/19 19:45 02/17/19 19:44 01/21/19 08:29 Calcitonin [place] (Miacalcin) 1 sprays BID NASAL 01/18/19 18:00 02/17/19 17:59 01/21/19 08:29 Ondansetron HCl (Zofran) 4 mg Q6H PRN IVP Nausea & Vomiting 01/18/19 14:45 02/17/19 14:44 Potassium Chloride (K-Dur) 40 meq ONCE ORAL 01/21/19 09:30 01/21/19 11:29 Angel Sandoval MD Jan 21, 2019 09:32
--- NOTE | 2019-01-21 19:38 | Surgery Progress Note ---
Surgery Progress Note Subjective Symptoms: improved, pain absent, tolerating diet, voiding well, passing flatus , other Additional Comments late entry as patient was seen this AM comfortable wants to go home labs noted exam stable. Objective Last 24 Hour Vital Signs Date Time Temp Pulse Resp B/P (MAP) Pulse Ox O2 Delivery O2 Flow Rate FiO2 01/21/19 09:00 Room Air 01/21/19 08:29 77 141/99 01/21/19 08:00 98.3 77 18 141/99 (113) 98 01/21/19 04:00 98.0 79 18 123/86 (98) 97 01/21/19 00:00 97.2 72 18 151/86 (107) 98 01/20/19 20:54 87 144/93 01/20/19 20:37 Room Air 01/20/19 20:00 97.8 87 18 144/93 (110) 99 I&O Intake and Output 01/20/19 01/21/19 19:00 07:00 Intake Total 1650 ml 1375 ml Balance 1650 ml 1375 ml IV Total 1650 ml 1375 ml Cardiovascular: RSR Respiratory: clear Abdomen: soft, flat, non-tender, present bowel sounds Extremities: no edema, no tenderness, no cyanosis Laboratory Tests Test 01/21/19 05:22 White Blood Count 6.0 K/UL (4.8-10.8) Red Blood Count 3.95 M/UL (4.70-6.10) L Hemoglobin 11.2 G/DL (14.2-18.0) L Hematocrit 31.7 % (42.0-52.0) L Mean Corpuscular Volume 80 FL (80-99) Mean Corpuscular Hemoglobin 28.3 PG (27.0-31.0) Mean Corpuscular Hemoglobin Concent 35.4 G/DL (32.0-36.0) Red Cell Distribution Width 12.1 % (11.6-14.8) Platelet Count 193 K/UL (150-450) Mean Platelet Volume 7.3 FL (6.5-10.1) Neutrophils (%) (Auto) 57.9 % (45.0-75.0) Lymphocytes (%) (Auto) 16.0 % (20.0-45.0) L Monocytes (%) (Auto) 10.8 % (1.0-10.0) H Eosinophils (%) (Auto) 13.4 % (0.0-3.0) H Basophils (%) (Auto) 1.9 % (0.0-2.0) Sodium Level 138 MMOL/L (136-145) Potassium Level 3.3 MMOL/L (3.5-5.1) L Chloride Level 103 MMOL/L (98-107) Carbon Dioxide Level 25 MMOL/L (21-32) Anion Gap 10 mmol/L (5-15) Blood Urea Nitrogen 19 mg/dL (7-18) H Creatinine 1.8 MG/DL (0.55-1.30) H Estimat Glomerular Filtration Rate 44.8 mL/min (>60) Glucose Level 93 MG/DL (74-106) Calcium Level 10.6 MG/DL (8.5-10.1) H Total Bilirubin 1.0 MG/DL (0.2-1.0) Aspartate Amino Transf (AST/SGOT) 10 U/L (15-37) L Alanine Aminotransferase (ALT/SGPT) 16 U/L (12-78) Alkaline Phosphatase 66 U/L (46-116) Total Protein 7.4 G/DL (6.4-8.2) Albumin 3.7 G/DL (3.4-5.0) Globulin 3.7 g/dL Albumin/Globulin Ratio 1.0 (1.0-2.7) Plan Problems: (1) Abdominal pain Assessment & Plan: abd pain, n/v improving currently no complaints okay for diet after imaging iv fluids trend labs (2) Lesion of spleen Assessment & Plan: unknown correlation with hyperCa++ / hx of incarceration. Findings: Reticular nodular densities demonstrated within the right upper lobe. The densities are primarily interstitial and small airways type opacities with some nodular component. Findings may be due to pneumonia especially atypical infection. There is no consolidation or airspace opacities demonstrated. Correlate clinically. No pleural effusion seen. There are small nodes in the mediastinum nonspecific. There are also nodes within the axilla bilaterally. These could be inflammatory or neoplastic. There is suggestion of adenopathy in the subcarinal aspect of the mediastinum and as ago esophageal recess which appears convex. There is suggestion of a 6 no in the anterior dome of the liver. There may also be hilar nodes. This is not evaluated well on the current study which is obtained without intravenous contrast. 5 there are nonobstructive stones within both kidneys. There is no hydronephrosis. The spleen is enlarged measuring about 18 cm. There is relative absence of bowel gas within the abdomen. There is some moderate thickening of the wall the urinary bladder. Small nodes are seen in the mid retroperitoneum and mesentery nonspecific. Gallbladder is unremarkable. IMPRESSION: Marked splenomegaly. Nonobstructive stones within both kidneys. Reticular nodular infiltrate in the right lung. Inflammatory/infectious process suspected. Lymphadenopathy within the mediastinum and bilateral axilla. Neoplastic versus inflammatory. Probable hilar adenopathy. Suboptimal evaluation due to the nonadministration of intravenous contrast. (3) Vomiting Additional Comments okay to d/c from surgical standpoint f/u with pcp for eval and work up of spleen and ln's Jan Woods Jan 21, 2019 19:38
--- NOTE | 2019-01-22 09:15 | Discharge Summary ---
Discharge Summary Discharge Summary _ DATE OF ADMISSION: 01/18/2019 DATE OF DISCHARGE: 01/21/2019 DISCHARGED BY: Dr. Sandoval REASON FOR ADMISSION: 28 years old male with past medical history of substance abuse, in remission currently, resented for evaluation of intermittent vomiting for approximately 1 month. Patient reported that last two weeks ago he stopped using methamphetamine and alcohol , though previously was using heavily both of them. Patient denied abdominal pain , but he stated that he had postprandial emesis after almost every meal for the past 2 weeks. He tolerated liquids but it became increasingly difficult particularly within the last few days to tolerate solids. Emesis described as bilious, no blood in emesis. Patient denied history of pancreatitis, cholecystitis, appendicitis, or intra- abdominal surgery. No fever or chills. No chest pain or shortness of breath. No dysuria, hematuria, diarrhea or constipation. Upon evaluation blood pressure was slightly elevated 152/104, patient was tachycardic . Laboratory work-up revealed no leukocytosis ,hemoglobin 11.6 ,hematocrit 32.6 Urinalysis revealed no evidence of urinary tract infection , +2 protein . Chemistry showed potassium 3.3 , BUN 23 creatinine 2.5. Glucose 135. Total bili 1.2 , direct bili 0.2 . AST 17, ALT 24, lipase 89. Calcium. 13.6. Patient started on the IV hydration and admitted for further management EKG revealed sinus rhythm , no acute ischemic changes. Renal ultrasound demonstrated minimal bilateral hydronephrosis. Enlarged spleen. Innumerable hypoechoic nodules throughout the spleen, may represent foci of neoplasm or infection. Patient subsequently admitted to medical surgical floor for further management. CONSULTANTS: it technical support specialist Dr.De Reid surgery Dr. Woods [facility]: Patient admitted to medical surgical floor. Medical Artist and surgical consult was requested. Chest x-ray revealed patchy right upper lobe infiltrate , possibly reflecting focal pneumonia. CT scan of the chest , abdomen, and pelvis demonstrated marked splenomegaly. Nonobstructive stones within both kidneys. Reticulonodular infiltrate in the right lung. Inflammatory/infectious process suspected. Lymphadenopathy within the mediastinum and bilateral axilla. Neoplastic versus inflammatory. Probable hilar adenopathy. Patient was hydrated . Renal parameters and electrolytes were closely monitored, electrolytes corrected as needed . BUN from 23 down to 19 , creatinine from 2.5 down to 1.8 . hypercalcemia was treated with IV hydration and calcitonin, and improved . PTH appropriately suppressed. Serum protein electrophoresis negative. Vitamin D levels still pending at the time of this dictation. Hypercalcemia was probably due to lymphoma, as per it technical support specialist, Innumerable hypoechoic nodules seen throughout the spleen , pointed to likely lymphoma , as per it technical support specialist as well. Pulse oximetry was stable on room air. No fevers, no leukocytosis. Symptomatic care provided. Calcium improved ; down to 10.6 upon discharge. Blood pressure was managed with a calcium channel josue and improved. Patient wanted to go home. Imaging findings were explained to patient in detail. Patient is aware of lymphadenopathy and need to follow up the next week with his primary care provider . FINAL DIAGNOSES: Acute kidney injury Multiply splenic lesions Lymphadenopathy, possibly lymphoma Hypercalcemia , probably due to lymphoma - improved Nausea and vomiting Possible pneumonia, possible aspiration. DISCHARGE MEDICATIONS: No medication DISCHARGE INSTRUCTIONS: Patient was discharged home. Follow up with primary care provider in one week. I have been assigned to dictate discharge summary for this account. I was not involved in the patient's management. Ginger Costello NP Jan 22, 2019 09:15
--- NOTE | 2019-01-22 15:06 | Cardiology Report ---
APPROVED REPORT EKG Measurement Heart [id number] [place] [id number] Normal sinus rhythm Nonspecific ST abnormality Abnormal ECG
== END 2019-01-21 10:01 | disposition home or self-care (01) | DRG 691 ==
LOC: EMR 11:53 → 4E 12:57 → EDBEDREQ 13:02 → 4E 14:50
DX: C85.90 Non-Hodgkin lymphoma, unspecified, unspecified site (principal); N17.9 Acute kidney failure, unspecified; D73.89 Other diseases of spleen; E86.0 Dehydration; E83.52 Hypercalcemia; J69.0 Pneumonitis due to inhalation of food and vomit; F15.11 Other stimulant abuse, in remission; F10.11 Alcohol abuse, in remission; R11.2 Nausea with vomiting, unspecified
CPT/HCPCS: 36415; 71045; 71250; 74176; 76770; 80053; 81003; 82150; 82248; 82306; 82310; 83690; 83735; 83970; 84100; 84165; 85025; 85610; 85651; 85730; 86140; 93005; 96365; 96366; 96374; 99285; J2405; J8499